=== PATIENT | male | born 1930 | race Caucasian/White ===

== ENCOUNTER → 2019-07-18 | Outpatient (CLI) | payer OTHER ==
[~2019-07-18] MED LIST: ABILIFY 5 MG TAB5 MG PO; ADVAIR 250-501 EACH INH; ARICEPT 5 MG TAB5 MG PO; ASPIR 8181 MG PO; CENTRUM SILVER1 EAC2 PO; COUMADIN 5 MG TA5 M1 PO; COZAAR; COZAAR100 MG PO; FELODIPINE ER2.5 MG PO; FINASTERIDE; FISH OIL 1,001000 M2 PO; FISHOIL; HYDROCODONE-APA1 TA1 PO; INDAPAMIDE1.25 MG PO; KLOR-CON-EF 2525 ME1 PO; LASIX 20 MG TAB20 MG PO; LEVAQUIN 500 M500 M2 PO; LOPRESSOR50 MG PO; LOZOL; MOBIC; OCUVITE TABLET1 EAC1 PO; PREDNISONE10 MG PO; PROSCAR 5MG TABL5 MG PO; PROZAC40 MG PO; XALATAN2.5 ML OPHTHALMIC; ZOCOR; ZOCOR 10 MG TAB10 MG PO; aldactone; felodipine; multivitamin; uroxatral; vit d; warfarin; xalatan
== END ==
LOC: M.LAB 04:08
DX: E87.6 Hypokalemia (principal)